=== PATIENT | female | born 1975 | race Caucasian/White ===

== ENCOUNTER 2020-10-13 08:26 | Outpatient (REF) | payer OTHER, SELFPAY ==
[2020-10-13 09:58] LABS: COVID-19 Test Negative (Negative); IDNOW Serial# 55D5AD1C
== END 2020-10-13 08:27 | disposition home or self-care (01) ==
LOC: HO.EMPCOV 08:26
PROVIDERS: PCP Internal Medicine; Visit Provider Internal Medicine
DX: Z20.828 Contact with and (suspected) exposure to other viral communicable diseases (principal)
CPT/HCPCS: 87635; C9803

== ENCOUNTER 2022-10-04 11:55 | Outpatient (REF) | payer BC, SELFPAY ==
--- NOTE | ~2022-10-04 | MM_ITS ---
EXAMINATION: MM SCREENING DIGITAL BREAST TOMOSYNTHESIS, BILATERAL CLINICAL INFORMATION: Age 46. No prior breast imaging. No known family history breast cancer. Prior history of right breast tenderness 3-4 months with firm pressure applied. Screening. COMPARISON: None (current study represents initial baseline exam). TECHNIQUE: Digital breast tomosynthesis is performed in both the craniocaudal and mediolateral oblique views along with computer-aided detection (CAD). Synthesized 2D images are generated from the tomosynthesis. FINDINGS: There are scattered areas of fibroglandular density (ACR BI-RADS breast composition Category b). There are no significant masses, abnormal calcifications, or other abnormalities. No architectural abnormality. The axilla and skin contours are unremarkable. There is no skin thickening or coarsening of the Bill's ligaments. MM/MM tomosynthesis screening BI IMPRESSION: No mammographic evidence of malignancy. ASSESSMENT: BI-RADS 1: Negative RECOMMENDATION: Routine annual mammography screening. This patient's information was entered into a reminder system with a target due date for their next mammogram.
== END 2022-10-04 11:56 | disposition home or self-care (01) ==
LOC: HO.MAMMO 11:55
PROVIDERS: Visit Provider Registered Nurse
DX: Z12.31 Encounter for screening mammogram for malignant neoplasm of breast (principal)
CPT/HCPCS: 77063; 77067